=== PATIENT | male | born 1995 | race African-American/Black ===

== ENCOUNTER 2017-12-08 10:26 | Emergency (ER) | payer OTHER ==
[~2017-12-08] VITALS: Ht 172.7 cm; Wt 83.0 kg
[2017-12-08] MEDS ORDERED: HYDROCODONE-AP1 EAC6 PO (13:02)
[2017-12-08 13:13] VITALS: BP 117/59
== END 2017-12-08 13:13 | disposition home or self-care (01) ==
LOC: ER 10:26
DX: S02.609A Fracture of mandible, unspecified, initial encounter for closed fracture (principal); X58.XXXA Exposure to other specified factors, initial encounter; Y93.89 Activity, other specified; Y92.89 Other specified places as the place of occurrence of the external cause; Y99.8 Other external cause status